=== PATIENT | male | born 1990 | race Hispanic/Latino ===

== ENCOUNTER 2017-11-21 21:12 | Emergency (ER) | payer SELFPAY ==
[2017-11-22 00:37] LABS: RAPID GROUP A STREP NEGATIVE (NEGATIVE)
== END 2017-11-22 00:56 | disposition home or self-care (01) ==
LOC: EDH 21:12
DX: J11.1 Influenza due to unidentified influenza virus with other respiratory manifestations (principal); R50.9 Fever, unspecified
CPT/HCPCS: 87804; 87880